=== PATIENT | male | born 1950 | race Caucasian/White ===

== ENCOUNTER 2018-02-10 06:04 | Observation (INO) | payer MEDICARE, BC ==
[~2018-02-10 06:04] MED LIST: Buffered Lidocaine 0.9% SYRIN* 5 ML/SYR SYRINGE INTRADERM ONE; Dexamethasone IV* 4 MG/ML 1 ML (4 MG) IV SLOW PU ONE; Famotidine IV* 10 MG/ML 2 ML (20 mg) IV ONE; Gabapentin CAP(*) 300 MG PO ONE; celeCOXIB CAP* 200 MG PO ONE
[2018-02-10] MEDS ORDERED: ceFAZolin 2 GM PREMIX in ORs 2 GM/50 ML BAG IVPB ONE (06:31)
[2018-02-10] MEDS ORDERED: Famotidine IV* 10 MG/ML 2 ML (20 mg) ONE (06:31)
[2018-02-10] MEDS ORDERED: Dexamethasone IV* 4 MG/ML 1 ML (4 MG) ONE (06:31)
[2018-02-10] MEDS ORDERED: Gabapentin CAP(*) 300 MG ONE (06:31)
[2018-02-10] MEDS ORDERED: celeCOXIB CAP* 100 MG ONE (06:31)
[2018-02-10] MEDS ORDERED: Midazolam* 1 MG/ML 2 ML VIAL (2 MG) ONE (06:58)
[2018-02-10] MEDS ORDERED: Rocuronium* 10 MG/ML VIAL ONE (06:58)
[2018-02-10] MEDS ORDERED: fentaNYL* 50 MCG/ML 5 ML VIAL (250 MCG VIAL) ONE (06:58)
[2018-02-10] MEDS ORDERED: Lidocain 1% EPI 1:100,000 * 30 ML MDV ONE (07:37)
[2018-02-10] MEDS ORDERED: Thrombin 5,000 UNITS* 1 APPLIC KIT - topical use - TOPICAL ONE ×2 (07:38→08:32)
[2018-02-10] MEDS ORDERED: Bacitracin IV* 50,000 UNITS INJ ONE (07:39)
[2018-02-10] MEDS ORDERED: Morphine VIAL* 10 MG/ML 1 ML VIAL ONE (08:18)
[2018-02-10] MEDS ORDERED: Succinylcholine* 20 MG/ML 10 ML VIAL ONE (09:03)
[2018-02-10] MEDS ORDERED: Propofol* 10 MG/ML 20 ML BTL IV PUSH ONE ×3 (09:03→11:45)
[2018-02-10] MEDS ORDERED: Lidocaine 2% PF * 5 ML VIAL ONE (09:03)
[2018-02-10] MEDS ORDERED: EPHEDrine (Pressors)* 50 MG/ML VIAL ONE (09:11)
[2018-02-10] MEDS ORDERED: Phenylephrine INJ* 10 MG/ML 1 ML VIAL (10 MG) ONE (09:11)
[2018-02-10] MEDS ORDERED: Naloxone* 0.4 MG/ML 1 ML VIAL IV PRN (09:16)
[2018-02-10] MEDS ORDERED: Morphine INJ* 2 MG/ML 1 ML SYRINGE (TWO MG - NEW SYRINGE VERSION) IV PRN ×2 (09:16→18:04)
[2018-02-10] MEDS ORDERED: Ondansetron INJ* 2 MG/ML VIAL IV PRN ×2 (09:16→12:59)
[2018-02-10] MEDS ORDERED: HYDROcodone/ACETAMIN 5-325 MG* 1 TAB PO PRN ×2 (09:16→12:59)
[2018-02-10] MEDS ORDERED: DiMENhydriNATE IV* 50 MG/ML VIAL IV PUSH PRN (09:16)
[2018-02-10] MEDS ORDERED: Acetaminophen TAB* 325 MG PO PRN ×2 (09:16→12:59)
[2018-02-10] MEDS ORDERED: fentaNYL* 50 MCG/ML 2 ML VIAL (100 MCG VIAL) IV PRN (09:16)
[2018-02-10] MEDS ORDERED: Ondansetron INJ* 2 MG/ML VIAL ONE (12:10)
[2018-02-10] MEDS ORDERED: Magnesium Hydroxide LIQ* 30 ML UDC PO PRN (12:59)
[2018-02-10] MEDS ORDERED: Morphine INJ* 2 MG/ML 1 ML SYRINGE (TWO MG - NEW SYRINGE VERSION) ONE (13:20)
--- NOTE | 2018-02-10 13:27 | RAD ---
INDICATION: L4-L5 fusion COMPARISONS: None relevant TECHNIQUE:: Cone beam and planar fluoroscopy was provided for a surgical procedure. Total fluoroscopy time is: 20.6 seconds. The CTDI is 17.17 mGy Spot images demonstrate fusion with intervertebral graft material noted at L4-L5 counting from L5 as the last lumbar type vertebral body. FINDINGS: Spot images demonstrate a spinal needle overlying the lower lumbar spine. IMPRESSION: FLUOROSCOPY WAS PROVIDED FOR A SURGICAL PROCEDURE CPT II Codes: G9500
[2018-02-10] MEDS ORDERED: Cyclobenzaprine TAB* 10 MG PO PRN (18:03)
[2018-02-10] MEDS ORDERED: Metoclopramide TAB* 10 MG PO PRN (19:02)
[2018-02-10] MEDS: oxyCODONE/Acetamin 5/325 MG* TAB PO PRN (19:53)
[2018-02-10] MEDS ORDERED: Metoclopramide TAB* 10 MG PO ONE (20:00)
--- NOTE | 2018-02-11 00:13 | OP ---
DATE OF SURGERY: 02/10/18 - ROOM #338 DATE OF : [birth year] SURGEON: Shane Tyler MD Electoral Officer: MANUEL Olmos. Case was done with the assistance of surgical PA because of the complexity of the case. ANESTHESIA: General. PRE-OP DIAGNOSES: L4-5 degenerative disk disease and unstable spondylolisthesis. POST-OP DIAGNOSES: L4-5 degenerative disk disease and unstable spondylolisthesis. OPERATIVE PROCEDURE: The patient underwent a left L4-5 MIS TLIF with L4 laminectomy for decompression, PEEK interbody cage, pedicle screws L4 and L5 with arthrodesis with autologous iliac crest bone graft from a separate incision , DBX and navigation intraoperative monitoring. ESTIMATED BLOOD LOSS: 25 cc. COMPLICATIONS: None. SUMMARY: The patient is a very pleasant 67-year-old gentleman with complaints of back pain radiating to both lower extremities. The patient had a CT myelogram revealing L4-5 degenerative disk disease with grade I spondylolisthesis mobile on flexion and extension and significant stenosis with dorsal compression. After failing conservative modalities, he was offered the option of surgical intervention in the form of an arthrodesis. After explaining expectations, limitations, possible complications of the procedure to the patient and his spouse with complications included, but not limited to bleeding, infection, risk of injury to adjacent structures, coma, paralysis, , need for additional procedure, anesthesia risk, stroke, blindness, cancer , instability, hardware failure, pseudoarthrosis, adjacent level disease, spinal fluid leak, anesthesia risk, the patient was agreeable to proceed with surgery and informed consent was obtained. He understood that his condition may not improve and in fact may get worse after the surgery and that he may need to have additional procedures in the future. He also understood that the operative plan may be modified according to intraoperative findings and conditions. DESCRIPTION OF PROCEDURE: The patient was brought to the operating room, was placed under general anesthesia by the anesthesia team. He was carefully positioned prone on the Fox table and all bony prominences were meticulously padded. His skin was prepped and draped in a standard fashion. After appropriate surgical pause and patient identification, a small incision over the right iliac crest was made. After anesthetizing the skin with local anesthetic, the iliac crest was approached with a Corex trocar and iliac crest bone graft was harvested and kept for the arthrodesis part of the case. The navigation star pin was secured on the iliac crest and intraoperative O-arm imaging was obtained. The patient's data was transferred to the navigation platform and under stereotactic navigation, the projection of the pedicle screws on the skin were marked as well as the appropriate surgical level was identified and the skin was infiltrated with local anesthetic and a small paramedian incision on the left side was performed with #10 surgical blade. Incision was carried down to the dorsal fascia with the use of Bovie cautery and over the series of dilators, the tubular METRx retractor system was introduced into the field. The intraoperative microscope was brought into the field and the remaining thin layer of paraspinal musculature was removed exposing the base of the spinous process, the left L4 lamina and the left L4-5 facet. High-speed drill and Kerrison punches were used to fashion a complete laminectomy of L4 through the ipsi-contralateral approach for decompression, which was necessary, based on intraoperative imaging. Of note, significant compression of the thecal sac was identified due to hypertrophied ligamentum flavum which was adherent onto the dorsal surface of the dura. A medial facetectomy was performed and after skeletonizing the superior and medial aspect of the left L5 pedicle, a diskectomy and preparation of disk space for insertion of the interbody device was performed after incising the annulus fibrosus with #11 surgical blade. Diskectomy was completed with use of pituitary rongeurs, scrapers and curettes. During the laminectomy and facetectomy, locally harvested bone graft was saved for the arthrodesis part of the procedure and it was morcellized and mixed with the iliac crest bone graft as well in DBX . Part of the mixture of graft material was inserted into the prepared disk space as well as an Elevate Medtronic 28 x 9 mm expandable PEEK cage was filled with graft and inserted under stereotactic navigation. After copious irrigation and confirmation of meticulous hemostasis and meticulous inspection, the tubular retractor was then removed. Prior to removing, all exposed dura and nerve roots were found to be completely free of any pressure phenomenon. The dorsal fascia was approximated with 0 interrupted Vicryl sutures and another intraoperative O-arm image was obtained which confirmed excellent placement of the interbody cage. Under stereotactic navigation, the trajectory of the pedicles projection was marked on the skin on the right side and I infiltrated the skin with local anesthetic and a #10 surgical blade was used to incise the skin along the small right paramedian incision. The pedicles of L4 and L5 were cannulated with use of Triton high torque drill with navigated drill guide as well as with all awl tip tap and 6.5 x 45 mm [employer] screws were inserted. The process was confirmed with use of intraoperative fluoroscopic imaging. Two rds were inserted throught he same incisions. Another O-arm imaging was then obtained confirming excellent placement of all hardware including the 2 inserted connecting rods. The rods were secured with screw head caps and after removing of the extension towers and the navigation pin and sheath, the wounds were closed by layers after the confirmation of the meticulous hemostasis and meticulous inspection. Intraoperative fluoroscopic imaging confirmed excellent placement of all hardware and complete reduction of the spondylolisthesis. Incisions were closed with interrupted 2-0 Vicryl sutures and the skin was approximated with Dermabond. At the end of the procedure, all counts were reported to be correct. The patient remained hemodynamically stable throughout the case. Intraoperative monitoring was stable throughout the case. The patient was then turned supine, was extubated and was transferred to the Recovery in excellent condition. The case was done with assistance of surgical PA because of the complexity of the case. [id number]/[facility] #: [id number] CAROLINE
[2018-02-11] MEDS: oxyCODONE/Acetamin 5/325 MG* TAB PO PRN ×4 (00:48→16:35)
--- NOTE | 2018-02-11 10:53 | RAD ---
HISTORY: post op L4-5 fusion COMPARISONS: None VIEWS: 3 , Frontal, lateral, and coned-down lateral sacral views of the lumbar spine FINDINGS: ALIGNMENT: The alignment is normal. VERTEBRAL BODIES: The patient is status post spinal fusion with pedicle screws at L4 and L5. There is no hardware failure or osteolysis. There is diffuse osteopenia. There is a compression deformity of T12 which can be identified on the February 03, 2018 examination, without osseous retropulsion.. JOINTS: There is facet osteoarthritis diffusely. INTERVERTEBRAL DISCS: Intervertebral graft material is noted at L4-L5. SOFT TISSUE: Unremarkable. OTHER: The pelvis is unremarkable. The lung bases are clear. IMPRESSION: STATUS POST SPINAL FUSION.
[2018-02-11 17:22] VITALS: BP 139/78
--- NOTE | 2018-02-11 17:38 | PN ---
Progress Note - Progress Note Date of Service: 02/11/18 SOAP: Subjective: []Patient was seen earlier today and this pm. Tolerated procedure well. Preop LE and back pain resolved. Minimal incisional pain. Did not receive any pain medication On. Toleares PO well. Ambulates. Voids. wants to go home. Objective: []VSS, Afebrile. Wounds s,c,d AAOx3 LUCA, CN II-XII grossly intact. Motor 5/5 all extremities. Sensory grossly intact to light touch. Assessment: []67 yom POD#1 MIS L4-5 TLIF Plan: []Monitor VS, Neurochecks Encourage ambulation. DC home today. Full instructions were given. Hailey Tyler MD
--- NOTE | 2018-02-11 23:14 | DS ---
DISCHARGE SUMMARY: DATE OF ADMISSION: 02/10/18 DATE OF DISCHARGE: 02/11/18 ADMISSION DIAGNOSIS: L4-5 degenerative disk disease with spondylolisthesis. DISCHARGE DIAGNOSIS: L4-5 degenerative disk disease with spondylolisthesis. PROCEDURE: The patient underwent a minimally invasive left L4-5 MIS TLIF with L4 laminectomy, decompression. DISPOSITION: Home. CONDITION ON DISCHARGE: Good. HOSPITAL COURSE: The patient is a very pleasant 67-year-old gentleman with complaints of back pain radiating to both lower extremities. The patient had a CT myelogram revealing L4-5 degenerative disk disease with a grade I spondylolisthesis which was unstable on flexion and extension and after failing conservative modalities, he was offered the option of surgical intervention in the form of left L4-L5 MIS TLIF with L4 complete decompression. The patient tolerated the procedure well and was transferred to the regular floor. The patient was able to ambulate and tolerate p.o. well. On the first postoperative day, had excellent pain control. His preoperative back pain as well as lower extremity pain has completely resolved and he was able to void. He was found to be ready to be discharged home. Full discharge instructions were given to the patient. [id number]/[facility] #: [id number] MTDD
== END 2018-02-11 18:05 | disposition home or self-care (01) ==
LOC: OR 06:04 → SSU 14:33 → INTOOBSV 14:33
PROVIDERS: ADMIT Neurological Surgery; ATTEND Neurological Surgery
PROC: 0SG Lower Joints, Fusion (ICD-10-PCS; 2018-02-10)
PROC: 0SG04AJ Fusion of Lumbar Vertebral Joint with Interbody Fusion Device, Posterior Approach, Anterior Column, Percutaneous Endoscopic Approach (ICD-10-PCS; principal; 2018-02-10 07:30)
DX: M51.16 Intervertebral disc disorders with radiculopathy, lumbar region (principal); M47.26 Other spondylosis with radiculopathy, lumbar region; M43.16 Spondylolisthesis, lumbar region
CPT/HCPCS: 72100; 76001; A9270-GY; C1713; C9359; G0378; G8978-GP-CJ; G8979-GP-CI; G8980-GP-CI; G8987-GO-CJ; G8988-GO-CJ; G8989-GO-CJ; J0330; J0690; J1100; J2250; J2270; J2405; J2704; J3010

== ENCOUNTER 2018-05-11 06:45 | Day surgery (SDC) | payer MEDICARE, BC ==
[~2018-05-11 06:45] MED LIST changes: +Acetaminophen TAB* 325 MG PO PRN; -Dexamethasone IV* 4 MG/ML 1 ML (4 MG) IV SLOW PU ONE; -Famotidine IV* 10 MG/ML 2 ML (20 mg) IV ONE; -Gabapentin CAP(*) 300 MG PO ONE; -celeCOXIB CAP* 200 MG PO ONE
[2018-05-11] MEDS ORDERED: Midazolam* 1 MG/ML 2 ML VIAL (2 MG) ONE ×2 (08:15→08:28)
[2018-05-11 08:56] VITALS: BP 105/80
[2018-05-11] MEDS ORDERED: Cyclopentolate 1% OPTH.SOL* 2 ML BTL ONE (10:55)
[2018-05-11] MEDS ORDERED: acetaZOLAMIDE TAB* 250 MG ONE (10:55)
[2018-05-11] MEDS ORDERED: Lidocaine 1%* 5 ML VIAL ONE (10:55)
[2018-05-11] MEDS ORDERED: Povidone Iodine 5% OPTH* 30 ML BTL ONE (10:55)
[2018-05-11] MEDS ORDERED: Phenylephrine 2.5% OPTH.SOL* 2 ML BTL ONE (10:55)
[2018-05-11] MEDS ORDERED: Proparacaine 0.5% OPHTH.SOL* 15 ML BTL ONE (10:55)
[2018-05-11] MEDS ORDERED: Ketorolac 0.5% OPHTH (NF) 0.5 % 5 ML BTL ONE (10:55)
[2018-05-11] MEDS ORDERED: Neomycin/Polymy/Dex OPTH.SUSP* MAXITROL 0.1% 5 ML ONE (10:55)
[2018-05-11] MEDS ORDERED: Lidocaine 2% EPI 1:200000 MPF*10-20 ML VIAL ONE (10:55)
--- NOTE | 2018-05-11 11:40 | OP ---
OPERATIVE NOTE: DATE OF OPERATION: 05/11/18 DATE OF : [birth year] SURGEON: Ilya Salmon M.D. PREOPERATIVE DIAGNOSIS: Cataract, right eye. POSTOPERATIVE DIAGNOSIS: Cataract right eye. OPERATIVE PROCEDURE: Extracapsular cataract extraction with intraocular lens implant right eye. PROCEDURE: The patient was brought to the operating room after being given 1/2% Alcaine with epineph rine drops in the preoperative area. The eye was prepped and draped in the usual sterile fashion. S terile drape and eyelid speculum were placed. Again, topical 1/2% Alcaine with epinephrine was given . A paracentesis incision was made at the 9 o'clock position with the No.75 blade. Clear cornea inc ision 2.2 x 2.2-mm was created at the 12 o'clock position starting at the anterior limbus using the 2 .2-mm keratome. The anterior chamber was irrigated with 0.4 mL of 1% non-preservative intracameral l idocaine and filled with DisCoVisc. A capsulorrhexis was completed using the cystotome and the Utrat a forceps. Hydrodissection was performed with balanced salt solution. The lens nucleus was removed w ith the Phacoemulsification handpiece without incident. Cortex was removed with the irrigation-aspir ation handpiece. The capsular bag was re-inflated using DisCoVisc and an SN60WF 13.5 implant was ins erted with the shooter. The irrigation-aspiration handpiece was used to remove all residual DisCoVis c. The eye was refilled with balanced salt solution and the wound checked and found to be watertight . Topical Maxitrol drops were given. [id number]/[facility] #: [id number]
== END 2018-05-11 08:54 | disposition home or self-care (01) ==
LOC: OREAST 06:45
PROVIDERS: ATTEND Specialist
DX: H25.811 Combined forms of age-related cataract, right eye (principal); H43.813 Vitreous degeneration, bilateral; H44.23 Degenerative myopia, bilateral; Z87.891 Personal history of nicotine dependence; M19.90 Unspecified osteoarthritis, unspecified site
CPT/HCPCS: A9270-GY; J2250; V2632

== ENCOUNTER 2018-05-18 08:53 | Day surgery (SDC) | payer MEDICARE, BC ==
[~2018-05-18 08:53] MED LIST changes: +Cyclopentolate 1% OPTH.SOL* 2 ML BTL ONE; +Ketorolac 0.5% OPHTH (NF) 0.5 % 5 ML BTL ONE; +Lidocaine 1%* 5 ML VIAL ONE; +Lidocaine 2% EPI 1:200000 MPF*10-20 ML VIAL ONE; +Neomycin/Polymy/Dex OPTH.SUSP* MAXITROL 0.1% 5 ML ONE; +Phenylephrine 2.5% OPTH.SOL* 2 ML BTL ONE; +Povidone Iodine 5% OPTH* 30 ML BTL ONE; +Proparacaine 0.5% OPHTH.SOL* 15 ML BTL ONE; +acetaZOLAMIDE TAB* 250 MG ONE
[2018-05-18] MEDS ORDERED: Midazolam* 1 MG/ML 5 ML VIAL (5 MG) ONE (11:03)
[2018-05-18] MEDS ORDERED: fentaNYL* 50 MCG/ML 2 ML VIAL (100 MCG VIAL) ONE (11:03)
[2018-05-18 12:02] VITALS: BP 138/74
--- NOTE | 2018-05-18 13:28 | OP ---
DATE OF OPERATION: 05/18/2018 - [facility] DATE OF : 1950. SURGEON: Ilya Salmon M.D. PREOPERATIVE DIAGNOSIS: Cataract left eye. POSTOPERATIVE DIAGNOSIS: Cataract left eye. OPERATIVE PROCEDURE: Extracapsular cataract extraction with intraocular lens implant left eye. DESCRIPTION OF PROCEDURE: The patient was brought to the operating room after being given 1/2% Alcaine with epinephrine drops in the preoperative area. The eye was prepped and draped in the usual sterile fashion. Sterile drape and eyelid speculum were placed. Again, topical 1/2% Alcaine with epinephrine was given. A paracentesis incision was made at the 3 o'clock position with the No.75 blade. Clear cornea incision 2.2 x 2.2-mm was created at the 6 o'clock position starting at the anterior limbus using the 2.2-mm keratome. The anterior chamber was irrigated with 0.4 mL of 1% non-preservative intracameral lidocaine and filled with DisCoVisc. A capsulorrhexis was completed using the cystotome and the Utrata forceps. Hydrodissection was performed with balanced salt solution. The lens nucleus was removed with the Phacoemulsification handpiece without incident. Cortex was removed with the irrigation-aspiration handpiece. The capsular bag was re-inflated using DisCoVisc and an SN60WF 13.5 implant was inserted with the shooter. The irrigation-aspiration handpiece was used to remove all residual DisCoVisc. The eye was refilled with balanced salt solution and the wound checked and found to be watertight. Topical Maxitrol drops were given. [id number]/[facility] #: [id number] [facility]
== END 2018-05-18 12:12 | disposition home or self-care (01) ==
LOC: OREAST 08:53
PROVIDERS: ATTEND Specialist
DX: Z01.818 Encounter for other preprocedural examination (principal); H25.812 Combined forms of age-related cataract, left eye; H43.813 Vitreous degeneration, bilateral; H44.23 Degenerative myopia, bilateral
CPT/HCPCS: A9270-GY; J2250; J3010; V2632